=== PATIENT | male | born 1955 | race Asian ===

== ENCOUNTER 2016-09-18 12:49 | Day surgery (SDC) | payer OTHER ==
[~2016-09-18] VITALS: Ht 175.3 cm; Wt 77.0 kg
[2016-09-18] MEDS ORDERED: FENTANYL CITRATE/PF 50MCG/ML 2ML VIAL ONE (13:46)
[2016-09-18] MEDS ORDERED: MIDAZOLAM HCL 5 MG/5 ML VIAL ONE (13:47)
[2016-09-18] MEDS ORDERED: LIDOCAINE HCL 2% JELLY 5ML ONE (13:48)
[2016-09-18] MEDS ORDERED: TETRACAINE/BENZOCAINE/BUTAMBEN 56 GM SPRAY MM ONE (13:48)
[2016-09-18] MEDS ORDERED: RIVA20TA PO (17:05)
[2016-09-18] MEDS ORDERED: LORA10TA7 PO (17:06)
[2016-09-18] MEDS ORDERED: NAPR-681 PO (17:08)
[2016-09-18] MEDS ORDERED: AMIODARONE (17:09)
== END 2016-09-18 17:20 | disposition home or self-care (01) ==
LOC: CARD 12:49
PROVIDERS: ATTEND Specialist
DX: I48.1 Persistent atrial fibrillation (principal); I10 Essential (primary) hypertension; I12.9 Hypertensive chronic kidney disease with stage 1 through stage 4 chronic kidney disease, or unspecified chronic kidney disease; N18.9 Chronic kidney disease, unspecified
CPT/HCPCS: 92960; 93005; 93312; J2250; J3010

== ENCOUNTER → 2018-12-03 | Day surgery (SDC) | payer MEDICAID ==
[~2018-12-03] VITALS: Ht 177.8 cm; Wt 81.6 kg
[~2018-12-03] MED LIST: AMIODARONE; ATOR40TA70 MT; LEVO75TA7 MT; LORA10TA7 PO; NAPR-681 PO; RIVA20TA PO
== END | disposition home or self-care (01) ==
LOC: CCL 08:41
PROVIDERS: ATTEND Specialist
DX: I25.119 Atherosclerotic heart disease of native coronary artery with unspecified angina pectoris (principal); I11.9 Hypertensive heart disease without heart failure; E78.5 Hyperlipidemia, unspecified; E03.9 Hypothyroidism, unspecified; I48.91 Unspecified atrial fibrillation; J44.9 Chronic obstructive pulmonary disease, unspecified; Z87.891 Personal history of nicotine dependence; Z53.8 Procedure and treatment not carried out for other reasons